=== PATIENT | female | born 1980 | race Caucasian/White ===

== ENCOUNTER 2019-08-23 13:22 | Emergency (ER) | payer MEDICAID ==
[~2019-08-23] VITALS: Ht 170.2 cm; Wt 77.3 kg
[2019-08-23] MEDS ORDERED: ibuprofen tablet 400 MG TABLET PO ONE (13:55)
[2019-08-23 14:37] VITALS: BP 116/77
== END 2019-08-23 14:51 | disposition home or self-care (01) ==
LOC: ER 13:23
DX: M25.562 Pain in left knee (principal); M25.561 Pain in right knee; W22.8XXA Striking against or struck by other objects, initial encounter; Y93.89 Activity, other specified; Y92.89 Other specified places as the place of occurrence of the external cause; Y99.8 Other external cause status
CPT/HCPCS: 73564; 99284

== ENCOUNTER 2020-05-11 01:16 | Emergency (ER) | payer MEDICAID ==
[~2020-05-11] VITALS: Ht 170.2 cm; Wt 77.0 kg
[2020-05-11 01:18] VITALS: BP 128/72
[2020-05-11] MEDS ORDERED: ketorolac trometh inj. 60 MG/2 ML VIAL IM ONE (01:35)
== END 2020-05-11 01:52 | disposition home or self-care (01) ==
LOC: ER 01:16
DX: G44.209 Tension-type headache, unspecified, not intractable (principal); M54.2 Cervicalgia; H53.149 Visual discomfort, unspecified
CPT/HCPCS: 96372; 99283; J1885

== ENCOUNTER 2022-06-26 19:26 | Emergency (ER) | payer MEDICAID ==
--- NOTE | 2022-06-26 20:28 | NUR ---
CALLED PT INSIDE AND OUTSIDE PT NOT IN LOBBY
== END 2022-06-26 21:40 | disposition left against medical advice (07) ==
LOC: ER 19:28
DX: G43.909 Migraine, unspecified, not intractable, without status migrainosus (principal); Z53.21 Procedure and treatment not carried out due to patient leaving prior to being seen by health care provider

== ENCOUNTER 2022-06-26 22:55 | Emergency (ER) | payer MEDICAID ==
[~2022-06-26] VITALS: Ht 170.2 cm; Wt 79.5 kg
[2022-06-26 23:26] VITALS: BP 138/74
--- NOTE | 2022-06-26 23:44 | NUR ---
PT WHEN SHE LEFT TRIAGE - SAID SHE WAS GOING OUTSIDE ADVISED PT THAT IF SHE IS NOT IN THE LOBBY SHE WILL NOT BE SEEN THAT SHE NEEDS TO STAY CLOSE TOT THE ER LOBBY TO HEAR HER NAME BE CALLLED. PT SAID TO THIS RECORDER " U DODNT UNDERSTAND WHAT I NEED I AM GOING OUTSIDE " ADVISED THE PATIENT TO STAY IN SIDE . PT AMBULATED OUT ER LOBBY DOOR OUTSIDE
== END 2022-06-27 03:48 | disposition left against medical advice (07) ==
LOC: ER 22:55
DX: R51.9 Headache, unspecified (principal); Z53.21 Procedure and treatment not carried out due to patient leaving prior to being seen by health care provider

== ENCOUNTER 2022-08-31 20:07 | Emergency (ER) | payer MEDICAID ==
[~2022-08-31] VITALS: Ht 170.2 cm; Wt 175.0 kg
[2022-08-31 20:25] VITALS: BP 127/73
== END 2022-08-31 22:33 | disposition home or self-care (01) ==
LOC: ER 20:08
DX: M54.12 Radiculopathy, cervical region (principal); M25.561 Pain in right knee
CPT/HCPCS: 71046; 73564; 99284

== ENCOUNTER 2022-12-03 14:25 | Emergency (ER) | payer MEDICAID | END 2022-12-03 19:03 | disposition left against medical advice (07) | LOC: ER 14:26 | DX: M54.9 Dorsalgia, unspecified (principal); Z53.21 Procedure and treatment not carried out due to patient leaving prior to being seen by health care provider ==

== ENCOUNTER 2023-02-17 21:25 | Emergency (ER) | payer MEDICAID ==
[~2023-02-17] VITALS: Ht 170.2 cm; Wt 77.3 kg
[2023-02-17 21:28] VITALS: BP 122/77
== END 2023-02-17 22:41 | disposition left against medical advice (07) ==
LOC: ER 21:27
DX: F29 Unspecified psychosis not due to a substance or known physiological condition (principal); Z53.21 Procedure and treatment not carried out due to patient leaving prior to being seen by health care provider
CPT/HCPCS: 99281

== ENCOUNTER 2023-03-06 11:05 | Emergency (ER) | payer MEDICAID ==
[~2023-03-06] VITALS: Ht 170.2 cm; Wt 79.5 kg
[2023-03-06 11:13] VITALS: BP 124/82
[2023-03-06] MEDS ORDERED: METH4TAB3 PO (12:00)
[2023-03-06] MEDS ORDERED: NAPR-56 PO (12:00)
== END 2023-03-06 12:13 | disposition home or self-care (01) ==
LOC: ER 11:06
DX: R68.84 Jaw pain (principal); Z79.899 Other long term (current) drug therapy
CPT/HCPCS: 99283

== ENCOUNTER 2023-05-20 20:57 | Emergency (ER) | payer MEDICAID ==
[~2023-05-20] VITALS: Ht 170.2 cm; Wt 77.3 kg
[~2023-05-20 20:57] MED LIST: METH4TAB3 PO
[2023-05-20 21:04] VITALS: BP 121/82; PULSE 88; RESP 20; TEMP 98.3; O2SAT 99
== END 2023-05-20 22:51 | disposition left against medical advice (07) ==
LOC: ER 20:57
DX: M54.9 Dorsalgia, unspecified (principal); R51.9 Headache, unspecified; R20.0 Anesthesia of skin; Z53.21 Procedure and treatment not carried out due to patient leaving prior to being seen by health care provider
CPT/HCPCS: 99281

== ENCOUNTER 2023-06-13 12:52 | Emergency (ER) | payer MEDICAID ==
[~2023-06-13] VITALS: Ht 170.2 cm; Wt 77.3 kg
[2023-06-13 13:12] VITALS: BP 118/72; PULSE 87; RESP 20; TEMP 99.1; O2SAT 99
== END 2023-06-13 23:56 | disposition left against medical advice (07) ==
LOC: ER 12:53
DX: J11.1 Influenza due to unidentified influenza virus with other respiratory manifestations (principal); Z53.21 Procedure and treatment not carried out due to patient leaving prior to being seen by health care provider
CPT/HCPCS: 99281

== ENCOUNTER 2023-07-19 21:09 | Emergency (ER) | payer MEDICAID ==
[~2023-07-19] VITALS: Ht 170.2 cm; Wt 77.8 kg
[2023-07-19 21:12] VITALS: BP 121/87; PULSE 80; RESP 17; TEMP 98.1; O2SAT 98
== END 2023-07-20 01:21 | disposition left against medical advice (07) ==
LOC: ER 21:09
DX: M25.512 Pain in left shoulder (principal); Z53.21 Procedure and treatment not carried out due to patient leaving prior to being seen by health care provider
CPT/HCPCS: 99281

== ENCOUNTER 2024-02-23 16:22 | Emergency (ER) | payer MEDICAID ==
[~2024-02-23] VITALS: Ht 170.2 cm; Wt 81.8 kg
[2024-02-23 16:33] VITALS: BP 117/68; PULSE 84; O2SAT 100
[2024-02-23 17:12] LABS: BASOPHILS % (AUTO) 0.6 % (0-1); EOSINOPHILS # (AUTO) 0.3 X10'3 (0-0.9); EOSINOPHILS % (AUTO) 3.9 % (0-6); HEMATOCRIT 42.3 % (35.0-45.0); HEMOGLOBIN 14.2 g/dl (12.0-16.0); LYMPHOCYTES # (AUTO) 1.7 X10'3 (1.1-4.8); LYMPHOCYTES % (AUTO) 25.7 % (21-51); MEAN CORPUSCULAR HEMOGLOBIN 28.3 PG (27.0-31.0); MEAN CORPUSCULAR HGB CONC 33.7 g/dL (33.0-36.5); MEAN CORPUSCULAR VOLUME 84.1 FL (78-98); MEAN PLATELET VOLUME 7.8 FL (7.4-10.4); MONOCYTES # (AUTO) 0.5 X10'3 (0-0.9); MONOCYTES % (AUTO) 8.3 % (2-12); NEUTROPHILS % (AUTO) 61.5 % (42-75); PLATELET COUNT 276 X10'3 (140-440); RED BLOOD COUNT 5.03 X10'6 (4.20-5.60); RED CELL DISTRIBUTION WIDTH 14.3 % (11.5-14.5); WHITE BLOOD COUNT 6.5 X10'3 (4.5-11.0)
[2024-02-23 17:16] LABS: ALANINE AMINOTRANSFERASE 19 U/L (12-78); ALBUMIN 3.7 G/DL (3.4-5.0); ALKALINE PHOSPHATASE 104 IU/L (46-116); ANION GAP 5 (8-16); ASPARTATE AMINO TRANSFERASE 6 U/L (10-37); BILIRUBIN,TOTAL 0.3 MG/DL (0.1-1.0); BLOOD UREA NITROGEN 19 MG/DL (7-18); BUN/CREATININE RATIO 29.7 (10.0-20.0); CALCIUM 8.5 MG/DL (8.5-10.1); CHLORIDE 104 MMOL/L (99-107); CREATININE 0.64 MG/DL (0.40-0.90); GLUCOSE 90 MG/DL (70-104); LIPASE 27 U/L (16-77); POTASSIUM 3.8 MMOL/L (3.5-5.1); SODIUM 139 MMOL/L (135-145); TOTAL CARBON DIOXIDE 30.5 MMOL/L (24-32); TOTAL PROTEIN 7.4 G/DL (6.4-8.2); eCRCL 111 ML/MIN; eGFR > 90 ML/MIN
[2024-02-23 18:36] VITALS: RESP 16
[2024-02-23 18:42] LABS: BILIRUBIN,URINE NEGATIVE (Neg); CLARITY,URINE TURBID (Clear); COLOR,URINE RED (Yellow); GLUCOSE, URINE NEGATIVE (Neg); KETONES,URINE 15 mg/dl (Neg); LEUKOCYTE ESTERASE ,URINE MODERATE (Neg); OCCULT BLOOD,URINE LARGE (Neg); PROTEIN,URINE >=300 mg/dl (Neg); URINE HCG NEGATIVE (NEG)
[2024-02-23 18:46] LABS: NITRITES, URINE NEGATIVE (Neg); UA COLLECTION TYPE CLN CATCH MIDSTREAM
[2024-02-23 18:48] LABS: BACTERIA,URINE FEW /HPF (Neg); RBC,URINE TNTC /HPF (0-2); SQUAMOUS EPITHELIAL CELL,UR MODERATE /LPF (FEW)
[2024-02-23 18:49] LABS: MUCUS STRANDS MODERATE /LPF (Neg); TRANSITIONAL EPI CELLS,URINE FEW /HPF
[2024-02-23] MEDS ORDERED: NITR100C6 PO (18:49)
[2024-02-23] MEDS: nitrofuran monohydrate/nitrofuran macrocrysal 100 MG (MacroBID) capsule PO ONE (19:17)
[2024-02-23] MEDS: CefTRIAXone 1000mg IM Kit (w/lidocaine diluent) IM ONE (19:17)
[2024-02-23 19:27] VITALS: TEMP 98.5
== END 2024-02-23 19:28 | disposition home or self-care (01) ==
LOC: ER 16:22
DX: N39.0 Urinary tract infection, site not specified (principal); Z79.899 Other long term (current) drug therapy
CPT/HCPCS: 36415; 80053; 81001; 81025; 83690; 85025; 87088; 99283

== ENCOUNTER 2024-04-21 20:47 | Emergency (ER) | payer MEDICAID ==
[~2024-04-21] VITALS: Ht 170.2 cm; Wt 77.3 kg
[~2024-04-21 20:47] MED LIST changes: +NITR100C6 PO
[2024-04-21 20:55] VITALS: BP 121/65; PULSE 70; RESP 16; TEMP 98.1; O2SAT 98
== END 2024-04-21 22:46 | disposition home or self-care (01) ==
LOC: ER 20:48 → EEVIPCON 20:48 → ER 22:46
DX: Z04.41 Encounter for examination and observation following alleged adult rape (principal); Z79.899 Other long term (current) drug therapy
CPT/HCPCS: 99283

== ENCOUNTER 2025-03-29 10:06 | Outpatient (CLI) | payer MEDICAID ==
--- NOTE | 2025-03-29 12:17 | RADIOLOGY REPORT ---
EXAM: DI KNEE, COMP 4 VW MIN, DI KNEE, COMP 4 VW MIN CLINICAL INDICATION: CHRONIC PAIN IN BILATERAL KNEES TECHNIQUE: DI KNEE, COMP 4 VW MIN, DI KNEE, COMP 4 VW MIN Comparison: KNEE, COMP 4 VW MIN on DOS: 08/31/22 FINDINGS/IMPRESSION: There is no evidence of acute fracture or dislocation. Mild bilateral tricompartmental joint space narrowing The alignment is anatomical. There is no radiopaque foreign body.
--- NOTE | 2025-03-29 12:17 | RADIOLOGY REPORT ---
EXAM: DI SACRUM COCCYX CLINICAL INDICATION: TAILBONE PAIN TECHNIQUE: DI SACRUM COCCYX Comparison: None FINDINGS/IMPRESSION: There is no evidence of acute fracture or dislocation. The visualized joint space is well maintained. The alignment is anatomical. There is no radiopaque foreign body.
== END 2025-03-29 23:59 | disposition home or self-care (01) ==
LOC: RAD 10:06
PROVIDERS: ATTEND Student in an Organized Health Care Education/Training Program
DX: M17.0 Bilateral primary osteoarthritis of knee (principal); M53.3 Sacrococcygeal disorders, not elsewhere classified; M25.561 Pain in right knee
CPT/HCPCS: 72220; 73564

== ENCOUNTER 2025-05-01 04:28 | Emergency (ER) | payer MEDICAID ==
[~2025-05-01] VITALS: Ht 170.2 cm; Wt 68.1 kg
--- NOTE | 2025-05-01 05:34 | Physician Documentation ---
HPI ~ General Chief Complaint: Medication Request Stated Complaint: CHEST WALL PAIN Time Seen by MD: 05:08 OK to notify your PCP?: Yes Source: patient, RN/MD, RN notes reviewed, old records Mode of Arrival: POV Exam Limitations: no limitations History of Present Illness HPI Comments 44 year old female with history of GERD seen in bed 11 presents to the emergency department for complaints for a medication refill. She states that she is having a GERD flare up but has been unable to get her omeprazole for the last two days due to it being on hold. She states that she feels burning when laying down. Patient states that when she tries to lie down she begins vomiting and her burning worsens. Medication Reconciliation Allergies: Coded Allergies: No Known Allergies (Unverified , 05/01/25) Scheduled Methylprednisolone (Medrol), 1 DOSPAK PO UD Nitrofurantoin Monohyd/M-Cryst (Macrobid 100 mg Capsule), 1 CAP PO Q12H Pantoprazole Sodium (PROTONIX tablet), 1 TAB PO DAILY Past Medical History Past Medical History: Headache Past Surgical History: noncontributory Drug Use: none Lives In: Home Review of Systems All Other Systems at this time: Reviewed and Negative ROS As stated above in the HPI, otherwise all systems are reviewed and negative. Physical Exam Physical Exam Vital Signs: RN Vital Signs have been reviewed: Yes, Temperature: 96.8, Source: Temporal, Heart Rate: 100, Respiratory Rate: 15, BP: 141/97, Pulse Oximetry: 97, Weight: 68.100 Pulse Oximetry Reflects: adequate oxygenation Physical Exam General: The patient is well developed, well nourished, nontoxic appearing and is in no acute distress. Skin: [place], warm and dry with no rashes. HEENT: Head was normocephalic and atraumatic. Eyes - pupils equal, round, reactive to light and accommodation. Extraocular movements were intact. Conjunctivae were nonicteric. Ears - bilateral tympanic membranes were normal. The mouth and oropharynx were clear with moist mucous membranes. There were no pharyngeal exudates or erythema. Neck: Supple and nontender. There was no jugular venous distention, lymphadenopathy, thyromegaly or masses. Chest: Clear to auscultation bilaterally without wheezes, rales or rhonchi. No accessory muscle use. No dullness to percussion. Heart: Rate regular and rhythmic. S1, S2. No murmurs. Palpation of the chest wall was normal. No rubs or thrills. Abdomen: Soft, nontender and nondistended. Positive bowel sounds. No guarding or rebound. No hepatosplenomegaly or palpable masses. Extremities: No cyanosis, clubbing or edema. The patient moves all extremities. Pulses were equal and symmetric. Neurologic: Cranial nerves II-XII were intact. Sensation was intact to light touch throughout. Motor strength was 5/5 in all four extremities. Deep tendon reflexes were intact in both upper and lower extremities. Psychologic: The patient was oriented to person, place and time. The patient demonstrated appropriate judgement and insight. Progress Results/Orders Reviewed/noted all lab results: Yes Results/Orders Completed Orders - MANNIE GONGORA MD Ondansetron Disint. Tablet (Zofran Odt T (05/01/25 05:40) Pantoprazole Tablet (Protonix) (05/01/25 05:40) Mag & Alum Hydrox/Simeth Susp (Maalox Or (05/01/25 05:40) Lidocaine 2% Viscous (Xylocaine 2% Visco (05/01/25 05:40) Medications Received in ER Medications (Trade) Dose Ordered Sig/Jesús Route PRN Reason Start Time Stop Time Status Last Admin Dose Admin (Zofran ODT tablet) 4 mg ONCE ONCE PO 05/01/25 05:40 05/01/25 05:41 DC 05/01/25 05:49 4 MG (Protonix) 40 mg ONCE ONCE PO 05/01/25 05:40 05/01/25 05:41 DC 05/01/25 05:49 40 MG (Maalox oral suspension) 30 ml ONCE ONCE PO 05/01/25 05:40 05/01/25 05:41 DC 05/01/25 05:48 30 ML (Xylocaine 2% Viscous 15mL cup) 15 ml ONCE ONCE MM 05/01/25 05:40 05/01/25 05:41 DC 05/01/25 05:48 15 ML Vital Signs 05/01/25 05/01/25 05/01/25 05/01/25 04:47 05:51 05:53 05:55 Temp 96.8 96.6 Pulse 100 100 Resp 15 16 16 B/P (MAP) 141/97 143/79 (100) Pulse Ox 97 99 O2 Flow Rate 0 Re-Evaluation Re-Evaluation : Re-Evaluation: Improved Progress Patient was seen and examined. Patient was given reassurance. Patient has been off her medications for two days having severe heartburn after eating some [place] food. She states it is not spicy but nevertheless it is burning it is painful she is having some chest discomfort as well. Patient states it started right after eating. Patient was given Zofran Protonix magnesium and simethicone. Also lidocaine for GI cocktail. Patient is feeling much better at this time symptoms seemed to have improved. Patient was given a prescription and discharged home. She was encouraged to follow up with a GI doctor in to evaluate her chronic GERD possible gastritis. She is in a residential facility for detoxing. She will follow up with her primary care physician at a future date. Patient was told if she develops chest pain or any other concerns or vomiting up blood to return to the ER. Medical Decision Making Additional info obtained from: old records Differential Dx:Considerations: Include: Adverse circumstances, Economic, Psychosocial, Medical services unavail., Medication refill, Medication non- compliance, Other Departure Time of Disposition: 05:39 Disposition: HOME / SELF CARE / HOMELESS Impression: Primary Impression: GERD (gastroesophageal reflux disease) Qualified Codes: K21.9 - Gastro-esophageal reflux disease without esophagitis Condition: Stable Discharge Instructions: Medicine Refill at the Emergency Department Referrals: NO PRIMARY CARE PROVIDER (PCP) Prescriptions Pantoprazole Sodium (PROTONIX tablet) 40 Mg Tablet. 1 TAB PO DAILY for 30 Days, #30 TAB Prov: MANNIE GONGORA MD 05/01/25 Education Educated: Patient Educated regarding: diagnosis, treatment, prognosis, need for follow up Signature Scribe Signature: Scribed for Mannie Gongora MD by Joel Tyson . 05/01/25 05:39 Attestation: The note accurately reflects work and decisions made by me.Mannie Gongora MD 05/01/25 05:34 MANNIE GONGORA MD May 01, 2025 05:34 JOEL MARTINEZ May 01, 2025 05:39
[2025-05-01] MEDS ORDERED: PANT-47 PO (05:38)
[2025-05-01] MEDS: mag hydrox/Alum hydrox/simeth 30ml oral suspension PO ONE (05:48)
[2025-05-01] MEDS: LIDOcaine 2% Viscous 15ml cup MM ONE (05:48)
[2025-05-01] MEDS: ondansetron 4mg rapidly disintigrating tab PO ONE (05:49)
[2025-05-01] MEDS: pantoprazole 40mg Tablet.DR PO ONE (05:49)
[2025-05-01 05:53] VITALS: BP 143/79; PULSE 100; RESP 16; O2SAT 99
[2025-05-01 05:55] VITALS: TEMP 96.6
== END 2025-05-01 06:02 | disposition home or self-care (01) ==
LOC: ER 04:28
DX: K21.9 Gastro-esophageal reflux disease without esophagitis (principal); Z76.0 Encounter for issue of repeat prescription
CPT/HCPCS: 99284

== ENCOUNTER 2025-07-31 20:27 | Emergency (ER) | payer MEDICAID ==
[~2025-07-31] VITALS: Ht 170.2 cm; Wt 104.5 kg
[~2025-07-31 20:27] MED LIST changes: +PANT-47 PO
[2025-07-31 20:40] VITALS: BP 128/76; PULSE 90; RESP 16; O2SAT 99
--- NOTE | 2025-07-31 21:54 | RADIOLOGY REPORT ---
CLINICAL INDICATION: ANKLE PAIN TECHNIQUE: 4 radiographic views of the right ankle were obtained. Comparison: None FINDINGS/IMPRESSION: There is no evidence of acute fracture or dislocation. The visualized joint space is well maintained. The alignment is anatomical. There is no radiopaque foreign body.
--- NOTE | 2025-07-31 21:55 | RADIOLOGY REPORT ---
CLINICAL INDICATION: LEG PAIN TECHNIQUE: DI TIB/FIB 2 VWS Comparison: None FINDINGS: No osseous or joint abnormality identified with no fracture or dislocation. Joint spaces are normal. IMPRESSION: No abnormality demonstrated.
--- NOTE | 2025-07-31 21:55 | RADIOLOGY REPORT ---
CLINICAL INDICATION: FOOT PAIN TECHNIQUE: 3 radiographic views of the right foot were obtained. Comparison: None FINDINGS/IMPRESSION: There is minimally displaced small avulsed bony fragment from the lateral base of the 1st toe distal phalanx. No dislocation.
--- NOTE | 2025-07-31 21:56 | RADIOLOGY REPORT ---
CLINICAL INDICATION: HIP PAIN TECHNIQUE: 3 radiographic views of the right hip were obtained. Comparison: None FINDINGS/IMPRESSION: There is no evidence of acute fracture or dislocation. The visualized joint space is well maintained. The alignment is anatomical. There is no radiopaque foreign body. Phleboliths are noted within the pelvis.
--- NOTE | 2025-07-31 21:59 | RADIOLOGY REPORT ---
CLINICAL INDICATION: KNEE PAIN TECHNIQUE: 3 radiographic views of the right knee were obtained. Comparison: DI KNEE, COMP 4 VW MIN on DOS: 03/29/25, DI KNEE, COMP 4 VW MIN on DOS: 03/29/25, KNEE, COMP 4 VW MIN on DOS: 08/31/22 FINDINGS/IMPRESSION: There is no evidence of acute fracture or dislocation. The visualized joint space is well maintained. The alignment is anatomical. Nonspecific 5 x 3 mm soft tissue calcification over the anterior distal thigh.
--- NOTE | 2025-07-31 23:01 | Physician Documentation ---
History of Present Illness ~ Chief Complaint: Leg Pain Stated Complaint: RIGHT FOOT PAIN Time Seen by MD: 20:58 OK to notify your PCP?: Yes Source: patient Mode of Arrival: POV Exam Limitations: no limitations HPI Right leg pain after stepping down into a manhole. She reports that she is having pain in her right hip, right knee, tib-fib, ankle and foot. She does have some bruising noted to the lateral portion of her right great toe. Not taken any medication for pain prior to arrival. No loss of consciousness. Tetanus witin 5 years: No Medication Reconciliation Allergies: Coded Allergies: No Known Allergies (Unverified , 07/31/25) Scheduled Methylprednisolone (Medrol), 1 DOSPAK PO UD Nitrofurantoin Monohyd/M-Cryst (Macrobid 100 mg Capsule), 1 CAP PO Q12H Pantoprazole Sodium (PROTONIX tablet), 1 TAB PO DAILY Past Medical History Past Medical History: No Pertinent History, Headache Past Surgical History: noncontributory Drug Use: none Lives In: Home Review of Systems All Other Systems at this time: Reviewed and Negative Physical Exam Vital Signs: RN Vital Signs have been reviewed: Yes, Temperature: 97.8, Source: Temporal, Heart Rate: 90, Respiratory Rate: 16, BP: 128/76, Pulse Oximetry: 99, Weight: 104.500 Pulse Oximetry Reflects: adequate oxygenation Physical Exam General: Alert, no distress. HEENT: No injection, moist mucous membranes. Neck: Full range of motion. Respiratory: No respiratory distress, equal chest rise and fall. Chest: No accessory muscle use. Cardiovascular: Regular rate and rhythm. Gastrointestinal: Nondistended. Extremities: Normal range of motion, no deformity. Bruising to lateral portion of right great toe. Neurologic: Oriented x4. Psychiatric: Normal mood and affect. Skin: Normal color, warm and dry. Progress Results/Orders Reviewed/noted all lab results: Yes Results/Orders Orders - CATIA ALBARRAN HAND [employer]TER Knee, Complete (07/31/25 20:58) Tib/Fib (07/31/25 20:58) Ankle, Complete(3vw Min) (07/31/25 20:58) Foot, Complete (3vw Min) (07/31/25 20:58) Hip Unilateral 2 Views (07/31/25 20:58) Completed Orders - CATIA ALBARRAN [employer] Knee, Complete (07/31/25 20:58) Tib/Fib (07/31/25 20:58) Ankle, Complete(3vw Min) (07/31/25 20:58) Foot, Complete (3vw Min) (07/31/25 20:58) Hip Unilateral 2 Views (07/31/25 20:58) Vital Signs 07/31/25 20:40 Temp 97.8 Pulse 90 Resp 16 B/P (MAP) 128/76 Pulse Ox 99 EKG/XRAY/CT/US/VASC/MRI Bone/Soft Tissue X-Ray (Ext.) : Additional Comment Right hip x-ray as interpreted by me; no joint effusion, no acute fracture, no soft tissue swelling, no dislocation, or foreign body. Right knee x-ray as interpreted by me; no joint effusion, no acute fracture, no soft tissue swelling, no dislocation, or foreign body. Right ankle x-ray as interpreted by me; no joint effusion, no acute fracture, no soft tissue swelling, no dislocation, or foreign body. Right foot x-ray as interpreted by me; no joint effusion, no dislocation, or foreign body. minimally displaced small avulsed bony fragment from the lateral base of the 1st toe distal phalanx. Medical Decision Making Additional information obtaine: old records Findings She is having right leg pain after she stepped down into a manhole onto her right leg. There is a minimally displaced small avulsed bony fragment from the lateral base of the 1st toe distal right phalanx. Rest of her x-rays are normal. We will do a postop shoe to provide extra support. Take Tylenol and/or ibuprofen at home. She was given in his instructions for discharge as well as follow up. Rest of physical exam is unremarkable. General Diff Dx:Considerations: Include: Fracture Knee Diff Dx:Considerations: Include: Fracture-femur, Fracture-fibula, Fracture-patella, Fracture-tibia Ankle Diff Dx:Considerations: Include: Fracture-fibula Foot Diff Dx:Considerations: Include: Fracture-tarsal Toe Diff Dx:Considerations: Include: Fracture, Hematoma, Neurovascular injury, Open fracture Departure Disposition: 01 HOME / SELF CARE / HOMELESS Impression: Primary Impression: Toe fracture, right Condition: Stable Discharge Instructions: Toe Fracture, Hydr-dj-Clog Additional Instructions: Please wear the right postop shoe to provide extra support to your toe while it heals. Follow up with the primary care provider within the next week and return back here for any new or worsening symptoms you can obtain an ortho referral from your primary care provider. Typically these fractures heal in 6-8 weeks without needing any orthopedic surgery. Please use Tylenol and/or ibuprofen for pain relief at home. Foot elevated Referrals: NO PRIMARY CARE PROVIDER (PCP) Education Educated: Patient Educated regarding: diagnosis, treatment, prognosis, need for follow up Additional Comment Medical Screen Exam This patient recieved a medical screening examination. After reviewing the individual's medical complaints with presenting symptoms and performing an appropriate physical examination, it was determined that no immediate life- threatening emergency medical condition is present. This individual is also not a women having contractions. Signature Scribe Signature: . Attestation: Scribed for Catia Albarranp by Catia Harvey NP . 07/31/25 22:57 Parts of this note were created using [employer] voice recognition software program. While efforts were made to correct any mistakes made by this voice recognition software program, nonsensical phrases may remain in this note. In addition, there may be errors and syntax, grammar, content and spelling. CATIA ALBARRANP Jul 31, 2025 23:01
[2025-07-31 23:17] VITALS: TEMP 97.8
== END 2025-07-31 23:32 | disposition home or self-care (01) ==
LOC: ER 20:27
DX: S92.421A Displaced fracture of distal phalanx of right great toe, initial encounter for closed fracture (principal); Z79.899 Other long term (current) drug therapy; W22.8XXA Striking against or struck by other objects, initial encounter; Y93.89 Activity, other specified; Y92.89 Other specified places as the place of occurrence of the external cause; Y99.8 Other external cause status
CPT/HCPCS: 73502; 73564; 73590; 73610; 73630; 99284; L3260

== ENCOUNTER 2025-08-07 03:27 | Emergency (ER) | payer MEDICAID ==
[~2025-08-07] VITALS: Ht 170.2 cm; Wt 106.8 kg
--- NOTE | 2025-08-07 03:55 | Physician Documentation ---
History of Present Illness General Chief Complaint: Vaginal Bleeding Stated Complaint: VAGINAL BLEEDING Time Seen by MD: 03:38 Mode of Arrival: EMS History of Present Illness Initial Comments The patient is a 45-year-old female with a history of kidney stones who states she has had some vaginal bleeding. Patient states that she noticed some hematuria and then she noticed some serena bleeding from this same for region this evening. She states over last several hours she has had right flank and right lower abdominal pain. States he has a history of kidney stones. She states she has been without a period for five years. The patient states it was a slight amount of bleeding. The patient denies any fevers or chills. The patient states she is supposed to get an outpatient CT scan for her kidney stones. Patient's symptoms are moderate and persistent Medication Reconciliation Allergies: Coded Allergies: No Known Allergies (Unverified , 07/31/25) Scheduled Methylprednisolone (Medrol), 1 DOSPAK PO UD Nitrofurantoin Monohyd/M-Cryst (Macrobid 100 mg Capsule), 1 CAP PO Q12H Pantoprazole Sodium (PROTONIX tablet), 1 TAB PO DAILY Past Medical History Past Medical History: No Pertinent History, Headache Past Surgical History: noncontributory Drug Use: none Lives In: Home Review of Systems All Other Systems at this time: Reviewed and Negative Physical Exam Physical Exam Vital Signs: Heart Rate: 80, Respiratory Rate: 16, BP: 135/63, Pulse Oximetry: 100, Weight: 106.820 Physical Exam VITALS: Reviewed and as above. GENERAL: Alert, no apparent distress. HEENT: Normocephalic, atraumatic, PERRL, EOMI, dry mucosa, no erythema RESPIRATORY: Lungs clear, normal breath sounds, no respiratory distress. CHEST: No accessory muscle use, no retractions CV: Regular rate, rhythm, no edema, no murmur, No: JVD GI: Soft, non-tender, bowels sounds present, no rebound, guarding, or rigidity BACK: No CVA tenderness, or swelling MUSCULOSKELETAL: No deformities, no edema SKIN: Warm and dry, no rash NEURO: Oriented x4, No motor or sensory deficit PSYCH: Normal mood and affect, no agitation Progress Results/Orders Results/Orders Orders - OHLFSASPEN MD Ct Abdomen Pelvis (08/07/25 ) Completed Orders - OHASPEN PATIÑO MD Cbc/Diff (08/07/25 03:38) BMP (08/07/25 03:38) Hcg, Ur Ql (08/07/25 03:38) Ct Abdomen Pelvis (08/07/25 ) Ua W/Microscopic, Cult If Ind (08/07/25 06:00) Vital Signs 08/07/25 08/07/25 08/07/25 08/07/25 03:35 03:39 05:38 06:48 Pulse 80 79 Resp 16 16 16 18 B/P (MAP) 135/63 132/60 (84) Pulse Ox 100 97 08/07/25 07:54 Pulse 78 Resp 18 B/P (MAP) 124/81 Pulse Ox 98 Laboratory Tests Test 08/07/25 04:45 08/07/25 06:00 White Blood Count 8.4 Red Blood Count 4.49 Hemoglobin 12.5 Hematocrit 36.5 Mean Corpuscular Volume 81.4 Mean Corpuscular Hemoglobin 27.9 Mean Corpuscular Hemoglobin Concent 34.2 Red Cell Distribution Width 15.7 H Platelet Count 243 Mean Platelet Volume 8.0 Neutrophils (%) (Auto) 67.4 Lymphocytes (%) (Auto) 24.1 Monocytes (%) (Auto) 6.2 Eosinophils (%) (Auto) 1.8 Basophils (%) (Auto) 0.5 Neutrophils # (Auto) 5.7 Lymphocytes # (Auto) 2.0 Monocytes # (Auto) 0.5 Eosinophils # (Auto) 0.1 Basophils # (Auto) 0.0 CBC Comment Sodium Level 139 Potassium Level 3.4 L Chloride Level 108 H Carbon Dioxide Level 26.7 Anion Gap 4 L Blood Urea Nitrogen 19 H Creatinine 0.69 Estimated GFR/1.73 m2 > 90 BUN/Creatinine Ratio 27.5 H Glucose Level 102 Calcium Level 8.4 L Albumin 3.5 Chemistry Comments Urine Specimen Description Cln catch midstream Urine Color Ailey Urine Clarity Cloudy Urine pH 7.0 Urine Specific Levels 1.015 Urine Protein Negative Urine Glucose (UA) Negative Urine Ketones Negative Urine Occult Blood Large H Urine Nitrite Negative Urine Bilirubin Negative Urine Urobilinogen 1.0 Urine Leukocyte Esterase Negative Urine RBC Tntc Urine WBC 0-4 Urine Squamous Epithelial Cells None seen Urine Amorphous Phosphates 1+ Urine Bacteria None seen Urine Mucus Few Urine Culture Indicated Not ind Volume Urine Centrifuged 10 ml Urine HCG, Qualitative Negative Urine Comment EKG/XRAY/CT/US/VASC/MRI CT : Impression Patient: ADA BULL Medical Record: [id number] [facility] : 1980, Age: 45 Sex: Female Location: ER Patient Status: [facility] ER Service Date/Time: 08/07/25 Ordering Physician: ASPEN FOFANA MD Exam: CT ABDOMEN PELVIS Exam: CT CT ABDOMEN PELVIS History: abd pain Comparison Study: None Technique: Multidetector spiral CT of the abdomen was performed from lung bases to pubic symphysis. Imaging was performed without IV contrast. Axial, coronal and sagittal multiplanar reformats were obtained from the axial data set by the technologist. Radiation Dose : 1. Abdomen/Pelvis: CTDIvol 35.53 mGy, DLP 1902.94 mGy*cm. Findings: Evaluation of solid organs is limited due to lack of intravenous contrast use. Lung Bases: No acute or significant lung base finding. Normal heart size. No pleural or pericardial effusion. Liver: The liver is normal in size. No focal lesions. Gallbladder and Biliary Tree: Unremarkable Spleen: Unremarkable Pancreas: The pancreas is grossly normal in appearance. Adrenal Glands: Unremarkable Kidneys: Nonobstructing left inferior pole pelvocaliceal calculus measures 4 mm in diameter. No evidence of right nephrolithiasis. No hydronephrosis. Bladder: Grossly unremarkable for degree of distention. Bowel: The stomach is grossly normal in appearance. Small bowel and colon are normal in caliber and distribution. The appendix is normal. Ascites: Absent Lymphadenopathy: No mesenteric, retroperitoneal or periportal lymphadenopathy. Abdominal Wall and Mesentery: Unremarkable. Vasculature: The visualized abdominal aorta is normal in size and caliber. Evaluation of abdominal and pelvic vessels is limited due to lack of intravenous contrast. Pelvic Organs: Unremarkable Musculoskeletal: No aggressive focal bony lesions, acute fractures or dislocatio n. IMPRESSION: 1. Nonobstructive left nephrolithiasis. 2. No acute abnormalities in the abdomen or pelvis. Radiation optimization: All CT scans at this facility use at least one of these dose optimization techniques: automated exposure control mA and/or kV adjustment per patient size (includes targeted exams where dose is matched to clinical indication) or iterative reconstruction. Electronically Signed by:BAL ESPAÑA MD Date & Time: 08/07/25618 Dictated by: BAL ESPAÑA MD Dictation date and time: 08/07/25618 Primary Care Provider: NO PRIMARY CARE PROVIDER cc: ASPEN FOFANA MD ~ Medical Decision Making Additional information obtaine: old records Findings The patient with hematuria and some vaginal bleeding patient has a benign exam she is having some right sided abdominal pain and states she was supposed to get an outpatient CT for kidney stones, the patient has a CT to evaluate for possible kidney stones she has no kidney stones have evident in her collecting system and no other significant pathology identified on CT scan. The patient will be discharged with instructions to follow up as an outpatient. The patient's pulse oximetry was interpreted as adequate normal prior hospitalizations has been reviewed. Differential Diagnosis Urinary tract infection, renal colic, uterine bleeding, Departure Disposition: 01 HOME / SELF CARE / HOMELESS Impression: Primary Impression: Right sided abdominal pain Discharge Instructions: Abdominal Pain, Adult, [id number]-[id number] Referrals: NO PRIMARY CARE PROVIDER (PCP) Signature Scribe Signature: No scribe Attestation: The note accurately reflects work and decisions made by me.Aspen Fofana MD 08/08/25 04:22 ASPEN FOFANA MD Aug 07, 2025 03:55
[2025-08-07 05:02] LABS: MEAN PLATELET VOLUME 8.0 FL (7.4-10.4); RED CELL DISTRIBUTION WIDTH 15.7 % (11.5-14.5)
[2025-08-07 05:10] LABS: CREATININE 0.69 MG/DL (0.40-0.90); TOTAL CARBON DIOXIDE 26.7 MMOL/L (24-32); eCRCL 101 ML/MIN; eGFR > 90 ML/MIN
[2025-08-07 06:15] LABS: LEUKOCYTE ESTERASE ,URINE NEGATIVE (Neg); NITRITES, URINE NEGATIVE (Neg); OCCULT BLOOD,URINE LARGE (Neg)
[2025-08-07 06:16] LABS: URINE HCG NEGATIVE (NEG)
[2025-08-07 06:20] LABS: UA COLLECTION TYPE CLN CATCH MIDSTREAM
[2025-08-07 06:21] LABS: AMORPHOUS PHOSPHATES 1+; MUCUS STRANDS FEW /LPF (Neg); SQUAMOUS EPITHELIAL CELL,UR NONE SEEN /LPF (FEW)
--- NOTE | 2025-08-07 06:21 | RADIOLOGY REPORT ---
Exam: CT CT ABDOMEN PELVIS History: abd pain Comparison Study: None Technique: Multidetector spiral CT of the abdomen was performed from lung bases to pubic symphysis. Imaging was performed without IV contrast. Axial, coronal and sagittal multiplanar reformats were obtained from the axial data set by the technologist. Radiation Dose : 1. Abdomen/Pelvis: CTDIvol 35.53 mGy, DLP 1902.94 mGy*cm. Findings: Evaluation of solid organs is limited due to lack of intravenous contrast use. Lung Bases: No acute or significant lung base finding. Normal heart size. No pleural or pericardial effusion. Liver: The liver is normal in size. No focal lesions. Gallbladder and Biliary Tree: Unremarkable Spleen: Unremarkable Pancreas: The pancreas is grossly normal in appearance. Adrenal Glands: Unremarkable Kidneys: Nonobstructing left inferior pole pelvocaliceal calculus measures 4 mm in diameter. No evidence of right nephrolithiasis. No hydronephrosis. Bladder: Grossly unremarkable for degree of distention. Bowel: The stomach is grossly normal in appearance. Small bowel and colon are normal in caliber and distribution. The appendix is normal. Ascites: Absent Lymphadenopathy: No mesenteric, retroperitoneal or periportal lymphadenopathy. Abdominal Wall and Mesentery: Unremarkable. Vasculature: The visualized abdominal aorta is normal in size and caliber. Evaluation of abdominal and pelvic vessels is limited due to lack of intravenous contrast. Pelvic Organs: Unremarkable Musculoskeletal: No aggressive focal bony lesions, acute fractures or dislocation. IMPRESSION: 1. Nonobstructive left nephrolithiasis. 2. No acute abnormalities in the abdomen or pelvis. Radiation optimization: All CT scans at this facility use at least one of these dose optimization techniques: automated exposure control mA and/or kV adjustment per patient size (includes targeted exams where dose is matched to clinical indication) or iterative reconstruction.
[2025-08-07] MEDS: ketorolac trometh 15mg/ml vial 15 MG/ML ML IM ONE (06:48)
[2025-08-07 07:54] VITALS: BP 124/81; PULSE 78; RESP 18; O2SAT 98
[2025-08-08] MEDS ORDERED: TAMS-55 PO (15:46)
[2025-08-08] MEDS ORDERED: PANT-47 PO (16:28)
== END 2025-08-07 08:00 | disposition home or self-care (01) ==
LOC: ER 03:29
DX: R10.31 Right lower quadrant pain (principal)
CPT/HCPCS: 36415; 74176; 80048; 81001; 81025; 85025; 96372; 99285; J1885

== ENCOUNTER 2025-08-08 11:08 | Emergency (ER) | payer MEDICAID ==
[~2025-08-08] VITALS: Ht 170.2 cm; Wt 104.5 kg
[2025-08-08 11:15] VITALS: TEMP 98.4
--- NOTE | 2025-08-08 14:08 | Physician Documentation ---
History of Present Illness ~ Chief Complaint: Flank Pain Stated Complaint: KIDNEY PAIN Time Seen by MD: 13:51 HPI This is a 45-year-old female who presents back to the emergency department after being diagnosed with a kidney stone, patient reports that she has concern about blood in her urine and a small amount of blood between urination. Medication Reconciliation Allergies: Coded Allergies: No Known Allergies (Unverified , 08/08/25) Scheduled Methylprednisolone (Medrol), 1 DOSPAK PO UD Nitrofurantoin Monohyd/M-Cryst (Macrobid 100 mg Capsule), 1 CAP PO Q12H Pantoprazole Sodium (PROTONIX tablet), 1 TAB PO DAILY Tamsulosin Hcl* (Flomax*), 1 CAP PO DAILY Past Medical History Past Medical History: No Pertinent History, Headache Past Surgical History: noncontributory Drug Use: none Lives In: Home Review of Systems ROS As stated above in the HPI, otherwise all systems are reviewed and negative. Physical Exam Vital Signs: Temperature: 98.4, Source: Temporal, Heart Rate: 90, Respiratory Rate: 16, BP: 138/68, Pulse Oximetry: 99, Weight: 104.550 Oxygen Flow Rate: 0 Physical Exam VITALS: Reviewed and as above. GENERAL: Alert, nontoxic appearing, no apparent distress. RESPIRATORY: No increased work of breathing, no respiratory distress, speaking in full clear sentences BACK: Minimal left-sided CVA tenderness GI: Nontender to palpation Progress Results/Orders Results/Orders Completed Orders - SANIYA MEHTA COLLATOR HAND Ua W/Microscopic, Cult If Ind (08/08/25 14:15) Vital Signs 08/08/25 08/08/25 08/08/25 11:15 15:06 16:27 Temp 98.4 Pulse 90 87 Resp 16 18 B/P (MAP) 138/68 113/70 Pulse Ox 99 98 O2 Flow Rate 0 Laboratory Tests Test 08/08/25 14:15 Urine Specimen Description Cln catch midstream Urine Color Yellow Urine Clarity Cloudy Urine pH 7.0 Urine Specific [place] 1.020 Urine Protein Negative Urine Glucose (UA) Negative Urine Ketones Negative Urine Occult Blood Large H Urine Nitrite Negative Urine Bilirubin Negative Urine Urobilinogen 0.2 Urine Leukocyte Esterase Small H Urine RBC 50-100 Urine WBC 10-20 H Urine Squamous Epithelial Cells Many Urine Bacteria Few Urine Mucus Few Urine Culture Indicated Rejected for culture Volume Urine Centrifuged 10 ml Urine Comment Medical Decision Making Additional information obtaine: old records Findings This otherwise well-appearing 45-year-old female with a history of kidney stones presented with concern for blood in urine after being diagnosed with kidney stone yesterday, urinalysis did not demonstrate evidence of infection and hematuria on urinalysis is consistent with passage of kidney stone, patient's described symptoms are unchanged from yesterday and are consistent with passage of kidney stone. Patient is otherwise well-appearing hemodynamically stable in his reassuring she reports no fevers chills, or other systemic symptoms to suggest pyelonephritis or other infective process, any CVA tenderness was extremely minimal as patient reports pain though there was no visible evidence of tenderness on percussion. Patient reports minimal to no pain at this time. Patient is appropriate for outpatient follow up and has been provided home care instructions return to care precautions, and follow up instructions, patient additionally provided prescription for Flomax. Urinary Diff Dx:Considerations: Include: Appendicitis, Ectopic , PID, Pyelonephritis, Urinary Obstruction, UTI Genital Diff Dx:Considerations: Include: Dsymenorrhea, Menometrorrhagia, Menstrual bleeding, Vaginitis Departure Time of Disposition: 15:49 Disposition: 01 HOME / SELF CARE / HOMELESS Impression: Primary Impression: Hematuria Qualified Codes: R31.9 - Hematuria, unspecified Additional Impression: Flank pain with history of urolithiasis Condition: Improved Discharge Instructions: Kidney Stones Additional Instructions: The bleeding in your urine described as consistent with passenger of a kidney stone. If this continues please follow up with primary care provider. Please use the prescribed Flomax to help pass the kidney stone. Otherwise use ibuprofen and Tylenol as directed by [id number] packaging as needed for pain. Please follow up with your primary care provider in the next few days. Please return to the emergency department for any new or worsening concerning s ymptoms including but limited to worsening symptoms or if you develop a fever over 100.4 that does not lower with ibuprofen or Tylenol. Referrals: NO PRIMARY CARE PROVIDER (PCP) Prescriptions Pantoprazole Sodium (PROTONIX tablet) 40 Mg Tablet.dr 1 TAB PO DAILY for 30 Days, #30 TAB Prov: SANIYA MEHTA 08/08/25 Tamsulosin Hcl* (Flomax*) 0.4 Mg Cap.sr.24h 1 CAP PO DAILY for 30 Days, #30 CAP Prov: SANIYA MEHTA 08/08/25 Education Educated: Patient Educated regarding: diagnosis, treatment, prognosis, need for follow up Signature Scribe Signature: No scribe Attestation: The note accurately reflects work and decisions made by me.RUBY Alcala 08/09/25 00:39 SANIYA MEHTAP Aug 08, 2025 14:08
[2025-08-08 14:43] LABS: LEUKOCYTE ESTERASE ,URINE SMALL (Neg); NITRITES, URINE NEGATIVE (Neg); OCCULT BLOOD,URINE LARGE (Neg)
[2025-08-08 14:44] LABS: UA COLLECTION TYPE CLN CATCH MIDSTREAM
[2025-08-08 14:54] LABS: MUCUS STRANDS FEW /LPF (Neg); SQUAMOUS EPITHELIAL CELL,UR MANY /LPF (FEW)
[2025-08-08] MEDS ORDERED: TAMS-55 PO (15:46)
[2025-08-08 16:27] VITALS: BP 113/70; PULSE 87; RESP 18; O2SAT 98
[2025-08-08] MEDS ORDERED: PANT-47 PO (16:28)
== END 2025-08-08 16:29 | disposition home or self-care (01) ==
LOC: ER 11:09
DX: R31.9 Hematuria, unspecified (principal); Z79.899 Other long term (current) drug therapy; Z87.442 Personal history of urinary calculi
CPT/HCPCS: 81001; 99283